=== PATIENT | male | born 1950 | race Caucasian/White ===

== ENCOUNTER 2020-07-30 16:48 | Inpatient (IN) | payer MEDICARE, BC ==
[~2020-07-30] VITALS: Ht 180.3 cm; Wt 76.7 kg
[2020-07-30 22:20] VITALS: BP 139/83
--- NOTE | 2020-07-30 22:20 | NUR ---
GPS RN-ADMISSION NOTES: ADMITTED A 69-YR OLD MALE, FROM [facility]. ADMITTED ON 5150 FOR DTS/GD. PER HOLD, PT WAS VERY ANXIOUS, STANDING UP MULTIPLE TIMES, SHAKING. PATIENT TOOK OVERDOSE OF PILLS IN AN ATTEMPT TO KILL HIMSELF. PATIENT REPORTED HE DOES NOT HANDLE STRESS WELL AND HAS BEEN STRESSED DUE TO NOT HAVING WORK. UPON FACE TO FACE ASSESSMENT, PATIENT IS A/OX3, WITH PERIODS OF FORGETFULNESS, ANXIOUS, DEPRESSED, PATIENT REPEATEDLY SAYING THAT "I MADE A MISTAKE, I SHOULD NOT BE HERE, I AM IN A WRONG PLACE". VERBALIZATION OF FEELING ENCOURAGED. OFFERED SNACKS PT REFUSED. PT WAS ADVISED OF HIS HOLD. PT'S RIGHTS HANDBOOK AND A GUIDE TO PRESCRIPTION MEDICATIONS GIVEN. IN NO APPARENT DISTRESS NOTED. BELONGINGS WERE INVENTORIED AND CHECKED FOR CONTRABAND. PT. IS UNDER THE PSYCHIATRIC CARE OF DR. KELLY ORDERS OBTAINED AND UNDER THE MEDICAL CARE OF DR. GARCIA. SKIN BODY ASSESSMENT DONE. DENIES PAIN OR DISCOMFORT AT THIS TIME. SAFETY PRECAUTIONS IN PLACE. BED LOCKED AND IN LOWEST POSITION. SIDE RAILS UP X2. WILL CONTINUE TO MONITOR Q15 MIN ROUNDS FOR SAFETY AND BEHAVIOR.
[2020-07-30] MEDS ORDERED: MAG HYDROX/AL HYDROX/SIMETH 30 ML UDC PO PRN (22:30)
[2020-07-30] MEDS ORDERED: BLOOD SUGAR DIAGNOSTIC 1 EACH STRIP IN ONE (22:30)
[2020-07-30] MEDS ORDERED: MAGNESIUM HYDROXIDE 30 ML UDC PO PRN (22:30)
[2020-07-31] MEDS ORDERED: TAMS-12 PO (02:12)
[2020-07-31] MEDS ORDERED: QUET50TA79 PO (02:12)
--- NOTE | 2020-07-31 06:12 | NUR ---
GPS-RN NOTES: PAGED EPIC ON-CALL REGARDING MED RECON. WILL ENDORSE TO DAY SHIFT NURSE FOR CONTINUITY OF CARE.
[2020-07-31 06:53] LABS: CHOLESTEROL 168 mg/dL (<200); HDL CHOLESTEROL 53 mg/dL (40-60); LDL 100 mg/dL (0-99); TRIGLYCERIDES 59 mg/dL (30-150)
[2020-07-31 07:09] LABS: CALCIUM, SERUM 9.6 mg/dL (8.5-10.1); CREATININE 0.8 mg/dL (0.6-1.3); POTASSIUM 4.2 mmol/L (3.5-5.1)
[2020-07-31 07:30] LABS: ALBUMIN 3.5 g/dL (3.4-5.0); BILIRUBIN,TOTAL 0.5 mg/dL (0.2-1.0); TOTAL PROTEIN, SERUM 8.2 g/dL (6.4-8.2)
[2020-07-31 08:00] VITALS: BP 143/90
[2020-07-31] MEDS: LORAZEPAM 0.5 MG TABLET PO PRN (08:10)
--- NOTE | 2020-07-31 08:11 | NUR ---
RN NOTE: ANXIETY PT STATED HE WAS ANXIOUS AND REQUESTED PRN ANXIETY MEDICATION. LORAZEPAM 0.5MG PO PRN GIVEN AT 08:10 AM. WILL CONTINUE TO MONITOR.
[2020-07-31] MEDS: ESCITALOPRAM OXALATE (10 MG) 10 MG TABLET PO SCH (15:26)
[2020-07-31 16:00] VITALS: BP 144/86
[2020-07-31 16:09] LABS: BILIRUBIN,URINE NEGATIVE (NEGATIVE); COLOR,URINE DARK YELLOW (YELLOW); LEUKOCYTE ESTERASE ,URINE NEGATIVE (NEGATIVE); NITRITE, URINE NEGATIVE (NEGATIVE); PH,URINE 5.5 (5.0-8.0); PROTEIN,URINE NEGATIVE (NEGATIVE); UGLUCOSE NEGATIVE (NEGATIVE); UROBILINOGEN,URINE 0.2 EU/dL (0.2)
[2020-07-31 16:27] LABS: BACTERIA,URINE Few /HPF (None Seen); SQUAMOUS EPITHELIAL CELL,UR Few /HPF (None Seen)
[2020-07-31 16:29] LABS: HYALINE CASTS, URINE Few /LPF (None Seen); WBC,URINE 0-2 /HPF (0-3)
[2020-07-31 20:00] VITALS: BP 128/76
[2020-07-31] MEDS: TAMSULOSIN 0.4 MG CAP.SR.24H PO SCH (21:12)
[2020-08-01] MEDS: ACETAMINOPHEN 325 MG TABLET PO PRN ×2 (02:29→19:32)
--- NOTE | 2020-08-01 02:30 | NUR ---
RN note: Patient c/o PAT ,requested and given Tylenol 650 mg PO.
[2020-08-01 08:00] VITALS: BP 148/82
[2020-08-01] MEDS: ESCITALOPRAM OXALATE (10 MG) 10 MG TABLET PO SCH (08:39)
[2020-08-01] MEDS: LORAZEPAM 0.5 MG TABLET PO PRN (08:39)
--- NOTE | 2020-08-01 08:39 | NUR ---
RN NOTE: ANXIETY AND AGITATION PT EXHIBITING INCREASED ANXIETY AND AGITATION. VISIBLY TREMBLING. REPORTS ANXIETY AND CONCERN REGARDING BENZODIAZEPINES. PT AGREED TO TAKE ATIVAN 0.5 MG PO PRN. WILL MONITOR EFFECTIVENESS.
--- NOTE | 2020-08-01 15:23 | NUR ---
Family Contact: SW called the pts , Paige ([phone]), and discussed the pts initial discharge plan. SW informed her that the pt made a serious attempt to end his life and that today he was discussing the lack of trust everyone will have in him when he returns to his regular life with the SW. SW informed the pts that the pt appears to be highly anxious and paranoid. Pts stated that she agrees that the pt needs to be stable before returning to their home. SW stated that she will keep her as involved as she can.
[2020-08-01 16:00] VITALS: BP 129/82
--- NOTE | 2020-08-01 16:04 | NUR ---
Initial Discharge Plan: Pt currently lives at his home with his located at [address] [place] [address]; ([phone]). Per pt, he would like to return to his home. SW will work with the pt and the MD regarding appropriate discharge planning. SW will form a safe and proper discharge.
--- NOTE | 2020-08-01 19:33 | NUR ---
GPS-RN NOTES: RIGHT LOWER LEG PAIN PATIENT C/O RIGHT LOWER LEG PAIN. PT REQUESTED FOR TYLENOL. ADMINISTERED TYLENOL 350MG PO ORDERED. WILL CONTINUE TO REASSESS.
[2020-08-01 19:39] VITALS: BP 139/80
[2020-08-01] MEDS: TAMSULOSIN 0.4 MG CAP.SR.24H PO SCH (21:11)
[2020-08-02 08:00] VITALS: BP 135/83
[2020-08-02] MEDS: ESCITALOPRAM OXALATE (10 MG) 10 MG TABLET PO SCH (08:21)
--- NOTE | 2020-08-02 14:58 | NUR ---
Called Dr. Lepe for the consult and left a message.
[2020-08-02 16:00] VITALS: BP 129/82
[2020-08-02 19:46] VITALS: BP 141/80
[2020-08-02] MEDS: LORAZEPAM 0.5 MG TABLET PO PRN (19:51)
--- NOTE | 2020-08-02 19:53 | NUR ---
RN NOTED: ANXIETY PT. C/O FEELING ANXIOUS ,PACING,ATIVAN 0.5 MG PO PRN GIVEN PER PT. REQUEST ,WILL CONTINUE TO MONITOR.
[2020-08-02] MEDS: TAMSULOSIN 0.4 MG CAP.SR.24H PO SCH (21:29)
[2020-08-03 08:00] VITALS: BP 145/76
[2020-08-03] MEDS: ESCITALOPRAM OXALATE (10 MG) 10 MG TABLET PO SCH (08:51)
--- NOTE | 2020-08-03 11:25 | NUR ---
Outpatient Psychiatrist Contact: SW received a call from psychiatrist, Dr. Thomas ([phone]), and the SW asked the pt if she can speak to the psychiatrist. Pt stated that he was allowed to but when the SW called back she had to leave a voicemail to inform him that the SW can speak with him.
[2020-08-03 16:00] VITALS: BP 136/76
[2020-08-03 20:01] VITALS: BP 148/84
[2020-08-03] MEDS: TAMSULOSIN 0.4 MG CAP.SR.24H PO SCH (21:04)
[2020-08-04 08:00] VITALS: BP 145/79
[2020-08-04] MEDS: ESCITALOPRAM OXALATE (10 MG) 10 MG TABLET PO SCH (09:00)
[2020-08-04 16:00] VITALS: BP 150/77
--- NOTE | 2020-08-04 16:22 | NUR ---
VERBALIZED ANXIOUS ABOUT WANTING TO GO HOME,RN SPOKE TO DR. VICKERS.STATES HE WILL TALK TO PT. AGAIN.RN OFFERED ATIVAN-STATES HE WILL THINK ABOUT IT.
[2020-08-04 19:55] VITALS: BP 160/80
[2020-08-04] MEDS: TAMSULOSIN 0.4 MG CAP.SR.24H PO SCH (21:05)
[2020-08-05 08:00] VITALS: BP 146/85
[2020-08-05] MEDS: ESCITALOPRAM OXALATE (10 MG) 10 MG TABLET PO SCH (08:02)
[2020-08-05 16:00] VITALS: BP 143/83
[2020-08-05 20:14] VITALS: BP 127/73
[2020-08-05] MEDS: TAMSULOSIN 0.4 MG CAP.SR.24H PO SCH (21:08)
--- NOTE | 2020-08-06 00:28 | NUR ---
NURSES NOTES: OFFERED PATIENT HIS SLEEPING MEDICATION HE IS NOTED TO BE AWAKE AT THIS TIME. PATIENT REFUSED. HE STATED HE IS OKAY. WILL CONTINUE TO MONITOR.
[2020-08-06 08:00] VITALS: BP 139/90
[2020-08-06] MEDS: ESCITALOPRAM OXALATE (10 MG) 10 MG TABLET PO SCH (08:31)
--- NOTE | 2020-08-06 08:32 | NUR ---
MS/RN NOTE DURING MED PASS PATIENT WAS SEEN PACING AND ANXIOUS, VERBALIZED FELLING A LITTLE ANXIOUS. OFFERED ATIVAN AT THIS TIME, PATIENT REFUSED.
--- NOTE | 2020-08-06 10:25 | NUR ---
Probable Cause Hearing: Pts 5250 hold was upheld for grave disability.
[2020-08-06 16:31] VITALS: BP 127/77
--- NOTE | 2020-08-06 16:33 | NUR ---
Family Contact: SW called the pts , Paige ([phone]), and informed her that the pt is going to be discharged the following day and she stated she can come pick him up around 12.
[2020-08-06 20:00] VITALS: BP 145/69
[2020-08-06] MEDS: TAMSULOSIN 0.4 MG CAP.SR.24H PO SCH (21:04)
[2020-08-07 08:14] VITALS: BP 137/78
[2020-08-07] MEDS: ESCITALOPRAM OXALATE (10 MG) 10 MG TABLET PO SCH (08:31)
--- NOTE | 2020-08-07 09:00 | NUR ---
RN NOTE-PT ALERT ORIENTED PERSON PLACE PURPOSE . ANXIOUS ABOUT DC TODAY. PACING POOR YE CONTACT PREOCCUPIED. WILL PAVEL VICKERS
--- NOTE | 2020-08-07 10:14 | NUR ---
RN NOTE- PT SEEMS VERY ANXIOUS AND CANNOT REALLY CONTRACT FOR SAFETY. HE DENIES SI AT THIS TIME BUT I CALLED DR VICKERS AND HE ORDERED PT TO STAY UNTIL TOMORROW. HOLD DC FOR NOW.
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
--- NOTE | 2020-08-07 10:54 | NUR ---
Family Contact: SW called the pts , Paige ([phone]), and informed her that the pt is not being discharged today as he was making statements that caused concern for the pts nurses. Pts stated that she felt the same way when she called him earlier and he made similar statements. SW stated that she will keep her updated on the pts discharge.
--- NOTE | 2020-08-07 11:09 | NUR ---
Outpatient Psychiatrist Contact: SW received a call from psychiatrist, Dr. Thomas ([phone]), who stated that he believes that the pt will need an outpatient program to add structure to his home life. SW stated that she would start referring the pt. He stated that he believes this pt is a high risk for suicide. Pts psychiatrist also stated that he wanted to speak to the MD in the hospital so SW messaged Dr. Lawrence.
--- NOTE | 2020-08-07 11:12 | NUR ---
[facility] Contact: SW contacted [facility] and completed the initial referral questions on the line and was informed that the SW would receive a call back soon.
--- NOTE | 2020-08-07 11:17 | NUR ---
[facility]: SW called [facility] and left a voicemail stating that the SW would like to refer a patient.
--- NOTE | 2020-08-07 11:19 | NUR ---
[facility] [place] Contact: SW contacted [facility] and left a voicemail stating that the SW would like to refer a patient.
--- NOTE | 2020-08-07 11:29 | NUR ---
[facility]: Austin from [facility] called and stated that the pt can be admitted for IOP or PHP but stated that Medicare and [employer] are not covered and therefore IOP would cost $10,000 for 4 weeks and PHP would cost $20,000 for 4 weeks. SW stated that she will talk to the pt and if this program is something that the pt can afford then she will fax the referral to [phone].
--- NOTE | 2020-08-07 11:40 | NUR ---
[facility] Contact: James from [facility] contacted the and stated that they do not cover the pts insurance company for outpatient services.
--- NOTE | 2020-08-07 15:23 | NUR ---
Intervention with MD: ROGER spoke with the pt at bedside with the MD present to assess the pt for suicidality. Pt appeared to be focused on his discharge and was not able to address the statements that he had made earlier. It was also mentioned that the pts was unsure about the pts discharge due to the same statements. MD informed the pt that he would be in the hospital for a few more days to ensure his safety. Addendum: 08/07/20 at 1535 by ROGER LYONS Pt also provided permission to the MD to contact his outside psychiatrist.
[2020-08-07 16:00] VITALS: BP 133/84
[2020-08-07] MEDS: risperiDONE 1 MG TABLET PO SCH (17:00)
--- NOTE | 2020-08-07 17:48 | NUR ---
RN NOTE- DR VICKERS STARTED PT ON RISPERDAL AND ABILIFY. WENT TO CONSENT SIGNED AND PT VOICED CONCERNS OVER RX. I PRINTED OUT INFORMATION ON MED AND GAVE TO PT.. HE SIGNED CONSENT BUT WHEN GIVEN THE MEDICATION, HE WAS RELUCTANT AND STATED HE'D RATHER WAIT AND TALK TO MD.
[2020-08-07 20:00] VITALS: BP 96/43
[2020-08-07 21:04] VITALS: BP 137/76
[2020-08-07] MEDS: TAMSULOSIN 0.4 MG CAP.SR.24H PO SCH (21:12)
--- NOTE | 2020-08-08 05:48 | NUR ---
RN NOTE PATIENT SLEPT WELL AT NIGHT. CALM. COOPERATIVE, ISOLATIVE, QUIET, RESTRICTED. PT. IS REDIRECTABLE. NO CORINNE NOTED THROUGH OUT THE SHIFT. AMBULATORY, STEADY. MED COMPLAINT. WILL CONTINUE TO MONITOR THE PATIENT FOR ANY CHANGES.
[2020-08-08 08:00] VITALS: BP 135/79
[2020-08-08] MEDS: ESCITALOPRAM OXALATE (10 MG) 10 MG TABLET PO SCH (08:23)
[2020-08-08] MEDS: risperiDONE 1 MG TABLET PO SCH ×2 (08:27→17:07)
[2020-08-08 16:00] VITALS: BP 118/66
[2020-08-08 20:55] VITALS: BP 112/67
[2020-08-08] MEDS: TAMSULOSIN 0.4 MG CAP.SR.24H PO SCH (21:54)
[2020-08-09 08:00] VITALS: BP 116/59
[2020-08-09] MEDS: ESCITALOPRAM OXALATE (10 MG) 10 MG TABLET PO SCH (08:59)
[2020-08-09] MEDS: risperiDONE 1 MG TABLET PO SCH ×2 (08:59→16:35)
[2020-08-09 16:00] VITALS: BP 130/73
[2020-08-09 20:54] VITALS: BP 137/70
[2020-08-09] MEDS: TAMSULOSIN 0.4 MG CAP.SR.24H PO SCH (21:10)
[2020-08-09] MEDS: TEMAZEPAM 7.5 MG CAPSULE PO PRN (22:34)
--- NOTE | 2020-08-09 22:34 | NUR ---
GPS-RN NOTES: PATIENT C/O INABILITY TO SLEEP. ADMINISTERED RESTORIL 7.5MG PO ORDERED. WILL CONTINUE TO MONITOR.
[2020-08-10 08:00] VITALS: BP 116/63
--- NOTE | 2020-08-10 09:00 | NUR ---
RN NOTE- PT ALERT CONFUSED, KEEPS ASKING "WHY AM I HERE" MED COMPLIANT, NEEDS ATTENDED WITHDRAWN INTERNALLY PREOCCUPIED. DENIES ALL BUT I DON'T TRUST HES BEING HONEST
[2020-08-10] MEDS: ESCITALOPRAM OXALATE (10 MG) 10 MG TABLET PO SCH (09:25)
[2020-08-10] MEDS: risperiDONE 1 MG TABLET PO SCH ×2 (09:25→16:03)
--- NOTE | 2020-08-10 11:35 | NUR ---
Family Contact: SW called the pts , Paige ([phone]), and left a voicemail stating that the SW would like to discuss the pts discharge plan.
--- NOTE | 2020-08-10 11:39 | NUR ---
[facility]: ROGER faxed a referral to [facility] with attn to [place] to the fax number: [phone].
--- NOTE | 2020-08-10 11:54 | NUR ---
Family Contact: Pts , Paige ([phone]), called the SW back and the SW informed her that the pt has been improving on the Risperdal dose and that he is projected to be discharged on Thursday. SW stated that she referred the pt to a Partial Program to provide structure to his home environment once he is discharged. Pts stated that she will come and pick him up around 11.
--- NOTE | 2020-08-10 12:06 | NUR ---
Outpatient Psychiatrist Contact: SW called pts psychiatrist, Dr. Thomas ([phone]), and informed him about the recent medication changes as well as the tentative discharge date for Thursday. SW requested an appointment for follow up and a fax number to send the most recent notes on Thursday. Pts psychiatrist provided both.
[2020-08-10 16:00] VITALS: BP 126/74
--- NOTE | 2020-08-10 19:30 | NUR ---
RN OPENING NOTE PT IN BED DENIES SI/HI. ENGAGING INTERACTIONS. APPEARS ANXIOUS, PRESSURED SPEECH. DENIES PAIN. IN NO APPARENT PHYSICAL DISTRESS. SAFETY MEASURES IN PLACE REVIEWED PLAN OF CARE AND MEDICATION SCHEDULE. PT VERBALIZED UNDERSTANDING WILL CONT TO MONITOR PER PROTOCOL.
[2020-08-10 20:19] VITALS: BP 127/75
[2020-08-10] MEDS: TEMAZEPAM 7.5 MG CAPSULE PO PRN (21:59)
[2020-08-10] MEDS: TAMSULOSIN 0.4 MG CAP.SR.24H PO SCH (21:59)
[2020-08-11 08:00] VITALS: BP 120/66
[2020-08-11] MEDS: risperiDONE 1 MG TABLET PO SCH ×2 (08:47→16:02)
[2020-08-11] MEDS: ESCITALOPRAM OXALATE (10 MG) 10 MG TABLET PO SCH (08:47)
[2020-08-11 16:00] VITALS: BP 141/76
[2020-08-11 20:30] VITALS: BP 126/74
[2020-08-11] MEDS: TAMSULOSIN 0.4 MG CAP.SR.24H PO SCH (21:52)
[2020-08-11] MEDS: TEMAZEPAM 7.5 MG CAPSULE PO PRN (21:55)
--- NOTE | 2020-08-11 21:56 | NUR ---
GPS RN NOTES: PATIENT REQUESTED SLEEP MEDICATION D/T INSOMNIA. RESTORIL 7.5MG/1CAP GIVEN PO ORDERED. WILL CONTINUE TO MONITOR.
--- NOTE | 2020-08-12 06:32 | NUR ---
GPS RN CLOSING NOTES: PATIENT IS SLEEPING COMFORTABLY IN BED. PATIENT SLEPT 9HR THIS SHIFT. PATIENT WAS MED COMPLIANT THIS SHIFT. NO C/O PAIN AND NO BEHAVIORAL ISSUES THIS SHIFT. NO S/S OF DISTRESS. RESPIRATION EVEN AND UNLABORED WITH EQUAL RISE AND FALL OF THE CHEST ON ROOM AIR. ALL PATIENT CARE NEEDS HAVE BEEN MET ANTICIPATED. BED IN LOWEST POSITION AND LOCKED WITH SIDE RAILS UP X2. WILL CONTINUE TO MONITOR FOR SAFETY, MOOD AND BEHAVIOR AND ENDORSE TO AM SHIFT.
[2020-08-12 08:00] VITALS: BP 117/74
[2020-08-12] MEDS: risperiDONE 1 MG TABLET PO SCH ×2 (08:50→16:20)
[2020-08-12] MEDS: ESCITALOPRAM OXALATE (10 MG) 10 MG TABLET PO SCH (08:51)
[2020-08-12 16:00] VITALS: BP 133/70
[2020-08-12 20:32] VITALS: BP 144/73
[2020-08-12] MEDS: TAMSULOSIN 0.4 MG CAP.SR.24H PO SCH (21:18)
--- NOTE | 2020-08-12 22:08 | NUR ---
RN note: Patient refused skin reassessment.
[2020-08-13 08:00] VITALS: BP 105/59
[2020-08-13] MEDS: risperiDONE 1 MG TABLET PO SCH (08:00)
[2020-08-13] MEDS: ESCITALOPRAM OXALATE (10 MG) 10 MG TABLET PO SCH (08:00)
--- NOTE | 2020-08-13 11:25 | NUR ---
GPS SPECIAL EVENTS DIRECTOR NOTES 69-YEAR OLD MALE DISCHARGED TO HOME IN STABLE CONDITION. COMPLIANT W/ MEDS, COOPERATIVE W/ TREATMENT PLANS PATIENT DENIES SI/HI/AH/VH AND INSTRUCTED TO GO TO THE CLOSEST ER IF DEVELOPING PSYCH SYMPTOMS. BEHAVIOR IMPROVED, PSYCH TX PLANS MET, MEDICAL TX PLANS DEFERRED FOR CONTINUAL MONITORING. EDUCATED PT ABOUT AFTERCARE PLAN ([facility]) AND COPY PROVIDED. RETURNED PERSONAL BELONGINGS TO PATIENT. RECONCILED MEDICATIONS W/ DR. VICKERS AND DR. GÓMEZ. PATIENT SIGNED DISCHARGE PAPERWORK. PATIENT DID NOT WANT PHOTO OF PREVIOUSLY NOTED SKIN ISSUES TO BE TAKEN. PATIENT LEFT UNIT AT 1115 VIA PRIVATE CAR, PICKED UP BY [facility], .
--- NOTE | 2020-08-13 12:18 | NUR ---
Discharge Note: Pt will be discharged back home located [address] [id number]; ([phone]). Pts , Paige ([phone]), will pickle sorter the pt around 11am. Upon discharge, the pt appears to be in a euthymic mood and presents with an anxious affect. Pt denies suicidal and homicidal ideation as well as auditory and visual hallucinations. Pt appears to be well groomed and appropriately dressed. Pt appears to be ambulatory with a steady gait. Pt will continue to follow up with his psychiatrist, Dr. Taylor Thomas, located at [address] [facility] [address], [address], [place] [address]; ; fax of records was sent to: [phone]. Appointment in person will take place on 08/22/20 at 4:30pm. Pt will also follow up with his data entry operator, Dr. Jagdish Barry, located at [address] [place] [address], [place] [address]; . The multidisciplinary exit care form was done, printed, signed, and given to the patient.
== END 2020-08-13 12:56 | disposition home or self-care (01) | DRG 885 ==
LOC: GPS 22:03
PROVIDERS: ADMIT Psychiatry & Neurology Psychiatry; ATTEND Student in an Organized Health Care Education/Training Program
DX: F29 Unspecified psychosis not due to a substance or known physiological condition (principal); F41.9 Anxiety disorder, unspecified; T43.59 Poisoning by, adverse effect of and underdosing of other antipsychotics and neuroleptics; Z79.899 Other long term (current) drug therapy; Z91.5 Personal history of self-harm; F13.10 Sedative, hypnotic or anxiolytic abuse, uncomplicated; N40.0 Benign prostatic hyperplasia without lower urinary tract symptoms; E78.5 Hyperlipidemia, unspecified; Z73.6 Limitation of activities due to disability; F33.3 Major depressive disorder, recurrent, severe with psychotic symptoms; F03.90 Unspecified dementia, unspecified severity, without behavioral disturbance, psychotic disturbance, mood disturbance, and anxiety
CPT/HCPCS: 36415; 70450-TC; 80053-TC; 80061-TC; 81001; 82962-TC; 87081-TC